=== PATIENT | male | born 1995 | race Caucasian/White ===

== ENCOUNTER 2016-07-26 11:29 | Emergency (ER) | payer BC ==
[2016-07-26] MEDS ORDERED: ONDANSETRON 4 MG TAB.RAPDIS PO ONE (11:42)
--- NOTE | 2016-07-26 11:44 | ER Document Report ---
ED Medical Screen (RME) - General Stated Complaint: FEVER Time seen by provider: 11:41 Mode of Arrival: Ambulatory Notes: Patient states sudden onset of high fever, nauseous, dizzy, and whole body pain which started last night. Patient states he has been vomiting, but does not know exactly how many times, denies diarrhea. Girlfriend with same symptoms. I have greeted and performed a rapid initial assessment of this patient. A comprehensive ED assessment and evaluation of the patient, analysis of test results and completion of the medical decision making process will be conducted by additional ED providers. TRAVEL OUTSIDE OF THE [place] IN LAST 30 DAYS: No - Related Data Allergies/Adverse Reactions: Sulfa (Sulfonamide Antibiotics) Allergy (Verified 07/26/16 11:41) Past Medical History Past Surgical History: Reports: Hx Oral Surgery, Hx Orthopedic Surgery - Immunizations Hx Diphtheria, Pertussis, Tetanus Vaccination: Yes Physical Exam - Respiratory Notes: Lungs clear to auscultation, no respiratory distress noted.
[2016-07-26 12:10] LABS: APPEARANCE,URINE CLEAR; BILIRUBIN,URINE NEGATIVE (NEGATIVE); GLUCOSE, URINE NEGATIVE (NEGATIVE); KETONES,URINE 20 mg/dL (NEGATIVE); LEUKOCYTE ESTERASE,URINE NEGATIVE (NEGATIVE); NITRITE,URINE NEGATIVE (NEGATIVE); PROTEIN,URINE 30 mg/dL (NEGATIVE); URINE SPECIFIC GRAVITY 1.023; UROBILINOGEN,URINE NEGATIVE mg/dL (<2.0)
[2016-07-26] MEDS ORDERED: ACETAMINOPHEN 325 MG TABLET PO ONE (12:19)
--- NOTE | 2016-07-26 12:24 | ER Document Report ---
ED Flu Like - General Chief Complaint: Flu Symptoms Stated Complaint: FEVER Mode of Arrival: Ambulatory Information source: Patient Notes: This is a 20-year-old previously healthy male who presents with flulike symptoms. He states that last night at about 9:00 PM he developed muscle aches , chills and sweats, fever. He has also had cough and congestion. He states that his cough is productive of green sputum. He has also had nausea and vomiting but no diarrhea. He is tolerating by mouth fluids for the past 3 hours. He did not get a flu shot this year. Of note his girlfriend is also here in the department with very similar symptoms. He states that his temperature at home last night was 104. He last took ibuprofen at 9:00 this morning. TRAVEL OUTSIDE OF THE [place] IN LAST 30 DAYS: No - Related Data Allergies/Adverse Reactions: Sulfa (Sulfonamide Antibiotics) Allergy (Verified 07/26/16 11:41) Past Medical History - General Information source: Patient - Social History Smoking Status: Current Every Day Smoker Chew tobacco use (# tins/day): No Frequency of alcohol use: Occasional Drug Abuse: None Family History: Reviewed & Not Pertinent Patient has suicidal ideation: No Patient has homicidal ideation: No - Medical History Medical History: Negative Renal/ Medical History: Denies: Hx Peritoneal Dialysis Past Surgical History: Reports: Hx Oral Surgery, Hx Orthopedic Surgery - Immunizations Hx Diphtheria, Pertussis, Tetanus Vaccination: Yes Review of Systems - Review of Systems Notes: REVIEW OF SYSTEMS: CONSTITUTIONAL : As per history of present illness EENT: Denies eye, ear, throat, or mouth pain or symptoms. Nasal congestion as per history of present illness CARDIOVASCULAR: Denies chest pain. RESPIRATORY: Denies shortness of breath, difficulty breathing, or wheezing. GASTROINTESTINAL: As per history of present illness GENITOURINARY: Denies difficulty urinating, painful urination, burning, frequency, or blood in urine. MUSCULOSKELETAL: Denies neck or back pain or joint pain or swelling. SKIN: Denies rash or skin lesions. HEMATOLOGIC : Denies easy bruising or bleeding. LYMPHATIC: Denies swollen, enlarged glands. NEUROLOGICAL: Denies altered mental status or loss of consciousness. Denies headache. PSYCHIATRIC: Denies anxiety or stress or depression. ALL OTHER SYSTEMS REVIEWED AND NEGATIVE. Physical Exam - Vital signs Vitals: Temp Pulse Resp BP Pulse Ox 100.8 F H 99 15 129/74 H 97 07/26/16 11:42 07/26/16 11:42 07/26/16 11:42 07/26/16 11:42 07/26/16 11:42 - Notes Notes: PHYSICAL EXAMINATION: GENERAL: Well-appearing, well-nourished and in no acute distress. Pleasant and conversant HEAD: Atraumatic, normocephalic. EYES: Pupils equal round and reactive to light, extraocular movements intact, sclera anicteric, conjunctiva are normal. ENT: nares patent, oropharynx clear without exudates. Moist mucous membranes. Slight pharyngeal erythema NECK: Normal range of motion, supple without lymphadenopathy LUNGS: Breath sounds clear to auscultation bilaterally and equal. No wheezes rales or rhonchi. HEART: Regular rate and rhythm without murmurs ABDOMEN: Soft, nontender, normoactive bowel sounds. No guarding, no rebound. No masses appreciated. EXTREMITIES: Normal range of motion, no pitting or edema. No cyanosis. NEUROLOGICAL: Cranial nerves grossly intact. Normal speech, normal gait. Normal sensory, motor, and reflex exams. PSYCH: Normal mood, normal affect. SKIN: Warm, Dry, normal turgor, no rashes or lesions noted. Course - Re-evaluation Re-evalutation: 07/26/16 13:01 Patient states this is negative however clinically his symptoms are very consistent with influenza. We discussed Tamiflu and he will be treated with Tamiflu as well as supportive care. He will follow up with his primary care physician. Strict return precautions are discussed. - Vital Signs Vital signs: Temp Pulse Resp BP Pulse Ox 100.8 F H 99 15 129/74 H 97 07/26/16 11:42 07/26/16 11:42 07/26/16 11:42 07/26/16 11:42 07/26/16 11:42 - Laboratory Laboratory results interpreted by me: 07/26/16 11:51 Urine Protein 30 H Urine Ketones 20 H Urine Blood SMALL H Discharge - Discharge Clinical Impression: Influenza-like syndrome Condition: Stable Disposition: HOME, SELF-CARE Additional Instructions: INFLUENZA: The physician feels that you have influenza -- the "flu". Influenza is an infection caused by a virus. Symptoms include generalized aching, fever, headache, dry cough, and fatigue. Some patients with the flu also have nausea, vomiting, and diarrhea. The fever and aches usually last two to four days, with the cough persisting another one to two weeks. Treatment of the flu, for the most part, is simply treatment of symptoms. Rest, drink plenty of fluids, and use acetaminophen for fever and aches. Do not take aspirin. There is an anti-viral medication, called Tamiflu, which may help in "type A" flu, but it's not helpful in every case of flu, and only works if started within the first 24 - 48 hours of the start of symptoms. The physician will determine whether this medication can help you. To prevent spread of the virus, use good handwashing. Shared toys should be cleaned with disinfectant. Clean the toilets, sinks, and counter surfaces in bathrooms. Launder clothing in hot water. What are conditions that should receive medical attention? The development of difficulty breathing. Lip color changes to blue or purple. Persistent vomiting and unable to keep liquids down with signs of dehydration such as: dizziness when standing, unable to urinate, or if child/ is crying no tears are noticed. Is less responsive than normal or becomes confused. How do I decrease the spread of flu in my home? Taking care of the sick patient at home: Keep the sick person in a room separate from the common areas of the house. Keep the "sickroom" door closed. If the person with the flu needs to leave the home, they should cover their nose/mouth when coughing or sneezing and wear a disposable (surgical) mask if available. These masks may be available at your local pharmacy, medical supply and hardware store. If the sick person is in common areas of the house, have them wear a surgical mask. If possible, have the sick person use a separate bathroom that should be cleaned daily with a household disinfectant. If you are the caregiver: Avoid being face to face with the sick adult person as much as possible. Try to stay at least 6 feet away and wear a disposable surgical mask when possible. When holding small children who are sick, place their chin on your shoulder so that they will not cough in your face. Wash your hands after you touch the sick person or handle their tissues and laundry. Wear a mask if you leave home, as you may be infected from taking care of someone and not know it yet. Watch yourself and others in the home for flu symptoms and contact your doctor if symptoms occur. NOTE: Antiviral medication used to reduce the symptoms of the flu works only if taken within 48 hours, and best within 24 hours of symptom onset. Household Cleaning, laundry and waste disposal: Tissues and other disposable items used by the sick person should be thrown away in the trash. Wash your hands after touching these used items. No special waste disposal is required. Keep surfaces (especially bedside tables, bathroom surfaces, and toys for children) clean by wiping them down with a safe household disinfectant according to the directions on the product label. Per Center for Disease Control advice, most people will not receive testing to confirm flu. Also based on the person's health history and onset of symptoms, not all patients will receive prescriptions for antiviral medications. If you have questions related to this, please ask your healthcare provider. For more information, you can call the Centers for Disease Control and Prevention ([facility]) Hotline at 5-741-MBCPlanStan This line is available in Lithuanian and Scottish, 24 hours a day, 7 days a week. Or www.[employer] or www.cdc.gov Flu-Like Illness Home Instructions: The influenza virus infection can cause a wide rage of symptoms, including: Fever, cough, sore throat, body aches, headaches, chills, fatigue, with some patients reporting diarrhea and vomiting Like seasonal influenza A, H1N1 ("swine flu")in humans can vary in severity from mild to severe Severe illness with pneumonia, respiratory failure and even is possible Certain groups might be more likely to develop a severe illness from H1N1 infection. Sometimes bacterial infections may occur at the same time as or after infection with influenza viruses and lead to pneumonias, ear infections, or sinus infections. How Flu Spreads The main way that influenza viruses spread is through respiratory droplets of coughs and sneezes. This can happen when someone with the infection coughs or sneezes and the particles fly through the air and land on other people and surfaces. If the person covers their mouth and nose with their hand but does not wash their hands immediately, then these germs are passed onto the next object that they touch. People with Influenza A or suspected H1N1 (swine flu) who are cared for at home should: Check with their doctor about any special care that they might need if they are or have a health condition such as diabetes, heart disease, asthma or emphysema. Also, limit caregiver to one (if possible). women or those with chronic health conditions should not take care of the flu patient unless necessary. Check with their doctor about whether or not medications are needed that may lessen the symptoms of the flu. Stay at home until 24 hours fever free without the use of fever reducing medication. Get plenty of rest and avoid other healthy people in your home. Drink plenty of clear liquids to keep from getting dehydrated. Take medications like Tylenol (Acetaminophen), Advil/Motrin/Nuprin ( Ibuprofen) or Aleve (Naproxen) for fevers and aches. All children under the age of 18 years of age should not take aspirin or products containing aspirin (e.g. Pepto Bismol), as this can cause a rare serious illness called Isaac Syndrome. Over the counter medications for flu and colds may help, but it is very important to follow the package directions. Remember that the medicine may help the symptoms, but it will not help prevent others from getting sick if they are around you. Cover coughs and sneezes using your bent arm. Clean hands with soap and water or an alcohol-based hand rub often, especially after using tissues to cough or sneeze. Encourage hand washing frequently for all people living in the home! The sick person should not have visitors other than caregivers. Encourage concerned loved ones to call instead of visit. Avoid close contact with others-do not go to work or school while sick. USE OF ACETAMINOPHEN (Tylenol): Acetaminophen may be taken for pain relief or fever control. It's much safer than aspirin, offering a wider range of "safe" dosages. It is safe during . Some brand names are Tylenol, Panadol, Datril, Anacin 3, Tempra, and Liquiprin. Acetaminophen can be repeated every four hours. The following are maximum recommended dosages: WEIGHT Dose Drops Elixir Chewable( 80mg) (LBS.) drprs=droppers tsp=teaspoon 6 40 mg 0.4 ml (1/2) 6-11 80 mg 0.8 ml (full) tsp 1 tab 12-16 120 mg 1 1/2 drprs 3/4 tsp 1 1/2 tabs 17-23 160 mg 2 drprs 1 tsp 2 tabs 24-30 240 mg 3 drprs 1 1/2 tsp 3 tabs 30-35 320 mg 2 tsp 4 tabs 36-41 360 mg 2 1/4 tsp 4 1/2 tabs 42-47 400 mg 2 1/2 tsp 5 tabs 48-53 480 mg 3 tsp 6 tabs 54-59 520 mg 3 1/4 tsp 6 1/2 tabs 60-64 560 mg 3 1/2 tsp 7 tabs 65-70 600 mg 3 3/4 tsp 7 1/2 tabs 71-76 640 mg 4 tsp 8 tabs 77-82 720 mg 4 1/2 tsp 9 tabs 83-88 800 mg 5 tsp 10 tabs >89 pounds or adults 650 mg to 900 mg Acetaminophen can be repeated every four hours. Maximum dose not to exceed 4000 mg a day. These maximum recommended dosages are slightly higher than the dosages written on the product container, but these dosages are very safe and below the toxic dosage for acetaminophen. ORAL NARCOTIC MEDICATION: You have been given a prescription for pain control. This medication is a narcotic. It's best taken with food, as nausea can result if taken on an empty stomach. Don't operate machinery or drive within six hours of taking this medication. Do not combine this medicine with alcohol, or with any medication which can cause sedation (such as cold tablets or sleeping pills) unless you get permission from the physician. Narcotics tend to cause constipation. If possible, drink plenty of fluids and eat a diet high in fiber and fruits. Please be aware that prescription narcotics also have the potential for abuse. People become addicted to these medications because of the general sense of wellbeing that they induce. This feeling along with a significant reduction in tension, anxiety, and aggression provides a stimulating seductive quality to these drugs. Once your pain is under control, we encourage you to discard your unused narcotics. FOLLOW-UP CARE: If you have been referred to a physician for follow-up care, call the physician s office for an appointment as you were instructed or within the next two days. If you experience worsening or a significant change in your symptoms, notify the physician immediately or return to the Emergency Department at any time for re-evaluation. Prescriptions: Oseltamivir Phosphate [Tamiflu 75 mg Capsule] 75 mg PO BID #10 capsule Promethazine HCl [Phenergan 25 mg Tablet] 1 tab PO Q6H PRN #15 tablet PRN Reason: Forms: Return to Work
[2016-07-26 13:16] VITALS: BP 123/74
== END 2016-07-26 13:14 | disposition home or self-care (01) ==
LOC: ER 11:29
DX: J11.1 Influenza due to unidentified influenza virus with other respiratory manifestations (principal); R50.9 Fever, unspecified; R61 Generalized hyperhidrosis; M79.1 Myalgia; R05 Cough; R11.2 Nausea with vomiting, unspecified; F17.200 Nicotine dependence, unspecified, uncomplicated; Z88.2 Allergy status to sulfonamides
CPT/HCPCS: 99283; 87070; 87880; 81001; 87804; S0119

== ENCOUNTER 2016-11-07 13:15 | Emergency (ER) | payer SELFPAY ==
[2016-11-07] MEDS ORDERED: OXYCODONE-ACETAMINOPHEN 5-325 MG TABLET PO ONE (13:26)
[2016-11-07] MEDS ORDERED: DIPH/PERTUSS(ACELL)/TETANUS VAC/PF 0.5 ML SYR (>=10YO) IM ONE (13:26)
--- NOTE | 2016-11-07 13:48 | ER Document Report ---
ED Hand/Wrist Injury - General Chief Complaint: Hand Pain Stated Complaint: RIGHT HAND INJURY Time Seen by Provider: 11/07/16 13:25 Mode of Arrival: Ambulatory Information source: Patient TRAVEL OUTSIDE OF THE [place] IN LAST 30 DAYS: No - HPI Patient complains to provider of: right hand injury Injury to: Hand Onset: Yesterday Timing: Constant Quality of pain: Achy, Fullness, Pressure Severity: Moderate Pain Level: 4 Context: Blow Notes: Patient is a 21-year-old male who presents to the emergency room complaining of right hand pain, states yesterday evening he punched a brick wall causing injury to his right hand, he has several abrasions over the MCP joint with significant swelling, reports a tingling sensation in his third through fifth digits as well, denies injury or pain elsewhere, last tetanus shot is unknown - Related Data Allergies/Adverse Reactions: Sulfa (Sulfonamide Antibiotics) Allergy (Verified 11/07/16 13:24) Past Medical History - General Information source: Patient - Social History Smoking Status: Unknown if Ever Smoked Family History: Reviewed & Not Pertinent Patient has suicidal ideation: No Patient has homicidal ideation: No Renal/ Medical History: Denies: Hx Peritoneal Dialysis Past Surgical History: Reports: Hx Oral Surgery, Hx Orthopedic Surgery - Immunizations Hx Diphtheria, Pertussis, Tetanus Vaccination: Yes Review of Systems - Review of Systems Constitutional: No symptoms reported EENT: No symptoms reported Cardiovascular: No symptoms reported Respiratory: No symptoms reported Gastrointestinal: No symptoms reported Genitourinary: No symptoms reported Male Genitourinary: No symptoms reported Musculoskeletal: See HPI Skin: See HPI Hematologic/Lymphatic: No symptoms reported Neurological/Psychological: No symptoms reported -: Yes All other systems reviewed and negative Physical Exam - Vital signs Vitals: Temp Pulse Resp BP Pulse Ox 98.5 F 101 H 20 151/76 H 97 11/07/16 13:24 11/07/16 13:24 11/07/16 13:24 11/07/16 13:24 11/07/16 13:24 - Notes Notes: - General General appearance: Appears well, Alert In distress: None - HEENT Head: Normocephalic, Atraumatic Eyes: Normal Conjunctiva: Normal Extraocular movements intact: Yes Eyelashes: Normal Pupils: PERRL - Respiratory Respiratory status: No respiratory distress - Cardiovascular Rhythm: Regular - Abdominal Inspection: Normal - Back Back: Normal - Extremities General upper extremity: right hand with several abrasions over the third through fifth MCP joints, significant swelling to the hand, with tenderness to palpate over the fourth and fifth metacarpals with slight deformity distal sensation is intact with brisk capillary refill and 2+ radial pulses General lower extremity: Normal inspection - Neurological Neuro grossly intact: Yes Orientation: AAOx4 [place] Coma Scale Eye Opening: Spontaneous [place] Coma Scale Verbal: Oriented [place] Coma Scale Motor: Obeys Commands [place] Coma Scale Total: 15 - Psychological Associated symptoms: Normal affect, Normal mood - Skin Skin Temperature: Warm Skin Moisture: Dry Skin Color: Normal Course - Re-evaluation Re-evalutation: 11/07/16 14:28 Findings discussed with patient at bedside, and ulnar gutter splint was, he was provided with pain medication as well as prophylactic antibiotics and information for follow-up with orthopedics, he was advised to leave splint in place until follow-up, ice and elevate, given return precautions for signs and symptoms of compartment syndrome, patient acknowledges understanding and agreement with this plan - Vital Signs Vital signs: Temp Pulse Resp BP Pulse Ox 98.5 F 89 20 136/74 H 97 11/07/16 13:24 11/07/16 14:23 11/07/16 13:24 11/07/16 14:23 11/07/16 14:23 - Diagnostic Test Radiology reviewed: Image reviewed, Reports reviewed Procedures - Immobilization Right Hand Time completed: 14:29 Pre-Proc Neuro Vasc Exam: Normal Immobilizer type: Ulnar Performed by: Other - [employer] OFFICER Post-Proc Neuro Vasc Exam: Normal Alignment checked and good: Yes Discharge - Discharge Clinical Impression: Fracture of fifth metacarpal bone of right hand Qualifiers: Encounter type: initial encounter Fracture type: closed Metacarpal location: base Fracture alignment: nondisplaced Qualified Code(s): S62.346A - Nondisplaced fracture of base of fifth metacarpal bone, right hand, initial encounter for closed fracture Fracture of fourth metacarpal bone Qualifiers: Encounter type: initial encounter Fracture type: closed Metacarpal location: shaft Fracture alignment: displaced Laterality: right Qualified Code(s): S62.324A - Displaced fracture of shaft of fourth metacarpal bone, right hand, initial encounter for closed fracture Condition: Stable Disposition: HOME, SELF-CARE Instructions: Fractured Fifth Metacarpal ([facility]), Fractured Metacarpal ([facility]), Temporary Splint ([facility]), Splint Pending Casting ([facility]), Tetanus Immunization Given ([facility]), Oral Narcotic Medication ([facility]), Ice & Elevation ([facility]) Additional Instructions: Follow up with your primary care provider and an orthopedic surgeon in one to 2 days. Return to the emergency room immediately if symptoms worsen or any additional concerns. Ice and elevate the affected extremity. Prescriptions: Cephalexin Monohydrate [Keflex 500 mg Capsule] 500 mg PO BID #20 capsule Oxycodone HCl/Acetaminophen [Percocet 5-325 mg Tablet] 1 - 2 tab PO ASDIR PRN # 15 tablet PRN Reason: Referrals: SHANNA OCONNOR MD [ACTIVE STAFF] - Follow up as needed
[2016-11-07 14:26] VITALS: BP 136/74
--- NOTE | 2016-11-07 14:29 | RADIOLOGY REPORT (SQ) ---
EXAM DESCRIPTION: HAND RIGHT 3 VIEWS COMPLETED DATE/TIME: 11/07/2016 1:53 pm REASON FOR STUDY: injury COMPARISON: None. EXAM PARAMETERS: NUMBER OF VIEWS: Three views. TECHNIQUE: AP, lateral and oblique radiographic images acquired of the right hand. LIMITATIONS: None. FINDINGS: MINERALIZATION: Normal. BONES: Acute spiral fracture mid shaft right 4th metacarpal. No definite extension into the carpomet acarpal joint. Comminuted fracture proximal base right 5th metacarpal, extending into the 5th carpometacarpal joint. Slight ulnar subluxation of the metacarpal fracture fragments with respect to the carpal bones. JOINTS: No effusions. SOFT TISSUES: Diffuse dorsal right hand soft tissue swelling OTHER: No other significant finding. IMPRESSION: Fractures of the 4th and 5th metacarpals. TECHNICAL DOCUMENTATION: JOB ID: [id number] [employer]- All Rights Reserved
== END 2016-11-07 14:30 | disposition home or self-care (01) ==
LOC: ER 13:15
PROC: 2W3EX1Z Immobilization of Right Hand using Splint (ICD-10-PCS; principal; 2016-11-07)
DX: S62.324A Displaced fracture of shaft of fourth metacarpal bone, right hand, initial encounter for closed fracture (principal); S62.346A Nondisplaced fracture of base of fifth metacarpal bone, right hand, initial encounter for closed fracture; M79.641 Pain in right hand; W22.8XXA Striking against or struck by other objects, initial encounter
CPT/HCPCS: 90471; 90715; 99283

== ENCOUNTER 2016-12-09 18:59 | Emergency (ER) | payer SELFPAY ==
[2016-12-09 19:05] VITALS: BP 134/82
--- NOTE | 2016-12-09 19:43 | ER Document Report ---
ED GI Bleed / Rectal Pain - General Chief Complaint: Rectal Bleeding Stated Complaint: RECTAL PROBLEM Time Seen by Provider: 12/09/16 19:37 Notes: Patient states that he has rectal pain. He states it is been for 2 days. He states he has also had bleeding. Patient states he has had problems with hemorrhoids since his allan year in high school. This started with weight lifting. He states bowel movements are extremely painful and he is having a hard time sitting down. The pain is worse with movement and better with rest. The pain is sharp. The pain does not radiate. He denies any abdominal pain. No fevers or vomiting. The pain is constant. TRAVEL OUTSIDE OF THE [place] IN LAST 30 DAYS: No - Related Data Allergies/Adverse Reactions: Sulfa (Sulfonamide Antibiotics) Allergy (Verified 12/09/16 19:01) Past Medical History - General Information source: Patient - Social History Smoking Status: Current Every Day Smoker Frequency of alcohol use: Occasional Drug Abuse: None Family History: Reviewed & Not Pertinent Patient has suicidal ideation: No Patient has homicidal ideation: No Renal/ Medical History: Denies: Hx Peritoneal Dialysis Past Surgical History: Reports: Hx Oral Surgery, Hx Orthopedic Surgery - Immunizations Hx Diphtheria, Pertussis, Tetanus Vaccination: Yes Review of Systems - Review of Systems Respiratory: denies: Cough, Short of breath Gastrointestinal: denies: Diarrhea, Vomiting Genitourinary: denies: Flank pain, Hematuria Physical Exam - Vital signs Vitals: Temp Pulse Resp BP Pulse Ox 98.4 F 61 14 134/82 H 100 12/09/16 19:02 12/09/16 19:02 12/09/16 19:02 12/09/16 19:02 12/09/16 19:02 - General General appearance: Appears well, Alert - Respiratory Respiratory status: No respiratory distress Chest status: Nontender Breath sounds: Normal Chest palpation: Normal - Cardiovascular Rhythm: Regular Heart sounds: Normal auscultation Murmur: No - Abdominal Inspection: Normal Distension: No distension Bowel sounds: Normal Tenderness: Nontender Organomegaly: No organomegaly - Rectal Tenderness: Yes Hemorrhoids: External - Back Back: Normal, Nontender - Extremities General upper extremity: Normal inspection, Nontender, Normal color, Normal ROM , Normal temperature General lower extremity: Normal inspection, Nontender, Normal color, Normal ROM , Normal temperature, Normal weight bearing. No: Augie's sign - Skin Skin Temperature: Warm Skin Moisture: Dry Skin Color: Normal Course - Vital Signs Vital signs: Temp Pulse Resp BP Pulse Ox 98.4 F 61 14 134/82 H 100 12/09/16 19:02 12/09/16 19:02 12/09/16 19:02 12/09/16 19:02 12/09/16 19:02 Discharge - Discharge Clinical Impression: Hemorrhoids, external Condition: Good Disposition: HOME, SELF-CARE Instructions: Hemorrhoids ([facility]) Prescriptions: Docusate Sodium [Colace 100 mg Capsule] 100 mg PO BID #60 capsule Oxycodone HCl/Acetaminophen [Percocet 5-325 mg Tablet] 1 - 2 tab PO ASDIR PRN # 15 tablet PRN Reason: Pramoxine HCl/Mineral Oil/Znox [Anusol Ointment] 24 gm RC BID #7 oint..gm. Referrals: THALIA MARTÍNEZ MD [LYSSA TEMPLE] - Follow up in 1 week
== END 2016-12-09 19:50 | disposition home or self-care (01) ==
LOC: ER 18:59
DX: K64.4 Residual hemorrhoidal skin tags (principal); K62.5 Hemorrhage of anus and rectum; F17.200 Nicotine dependence, unspecified, uncomplicated
CPT/HCPCS: 99283

== ENCOUNTER 2017-02-26 18:28 | Emergency (ER) | payer SELFPAY ==
[2017-02-26] MEDS ORDERED: NICOTINE 21 MG/24 HR PATCH.TD24 TD ONE (19:41)
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
[2017-02-26 21:03] VITALS: BP 122/78
== END 2017-02-26 21:07 | disposition home or self-care (01) ==
LOC: ER 18:28
DX: R45.1 Restlessness and agitation (principal); F17.200 Nicotine dependence, unspecified, uncomplicated; X83.8XXA Intentional self-harm by other specified means, initial encounter
CPT/HCPCS: 99284

== ENCOUNTER 2017-04-05 15:45 | Inpatient (IN) | payer SELFPAY ==
[2017-04-05] MEDS ORDERED: NORMAL SALINE 1000 ML 2,500 ML IV ONE (16:14)
[2017-04-05] MEDS ORDERED: ACETAMINOPHEN 325 MG TABLET PO ONE (16:14)
[2017-04-05] MEDS ORDERED: PIPERACILLIN/TAZOBACTAM 4.5 GM VIAL IV ONE (16:14)
[2017-04-05] MEDS ORDERED: ALBUTEROL SULFATE 0.083% NEB 2.5 MG/3 ML AMPUL NEB ONE (16:16)
--- NOTE | 2017-04-05 16:16 | ER Document Report ---
ED Medical Screen (RME) - General Chief Complaint: Cold Symptoms Stated Complaint: COLD SYMPTOMS Time Seen by Provider: 04/05/17 16:13 Notes: Patient reports fever cough and congestion for 1 week which is much worse of the last 3 days. He states he has been unable to eat. He states he feels very short of breath. He states he is coughing up green sputum. He states his father recently was diagnosed with the flu. TRAVEL OUTSIDE OF THE [place] IN LAST 30 DAYS: No - Related Data Allergies/Adverse Reactions: Sulfa (Sulfonamide Antibiotics) Allergy (Verified 04/05/17 15:48) Home Medications: Current Home Medications No Home Medications 04/05/17 [History] Past Medical History Renal/ Medical History: Denies: Hx Peritoneal Dialysis Past Surgical History: Reports: Hx Oral Surgery, Hx Orthopedic Surgery - Immunizations Hx Diphtheria, Pertussis, Tetanus Vaccination: Yes Physical Exam - Vital signs Vitals: Temp Pulse Resp BP Pulse Ox 100.7 F H 110 H 20 135/72 H 91 L 04/05/17 15:49 04/05/17 15:49 04/05/17 15:49 04/05/17 15:49 04/05/17 15:49 Course - Vital Signs Vital signs: Temp Pulse Resp BP Pulse Ox 100.7 F H 110 H 20 135/72 H 91 L 04/05/17 15:49 04/05/17 15:49 04/05/17 15:49 04/05/17 15:49 04/05/17 15:49
--- NOTE | 2017-04-05 17:07 | RADIOLOGY REPORT (SQ) ---
EXAM DESCRIPTION: CHEST PA/LAT COMPLETED DATE/TIME: 04/05/2017 4:58 pm REASON FOR STUDY: fever, cough COMPARISON: None. EXAM PARAMETERS: NUMBER OF VIEWS: two views TECHNIQUE: Digital Frontal and Lateral radiographic views of the chest acquired. RADIATION DOSE: NA LIMITATIONS: none FINDINGS: LUNGS AND PLEURA: No opacities, masses or pneumothorax. No pleural effusion. MEDIASTINUM AND HILAR STRUCTURES: No masses or contour abnormalities. HEART AND VASCULAR STRUCTURES: Heart normal size. No evidence for failure. BONES: No acute findings. HARDWARE: None in the chest. OTHER: No other significant finding. IMPRESSION: NO SIGNIFICANT RADIOGRAPHIC FINDING IN THE CHEST. TECHNICAL DOCUMENTATION: JOB ID: [id number] [employer]- All Rights Reserved
[2017-04-05 17:19] LABS: ABSOLUTE LYMPHOCYTES (AUTO) 1.6 10^3/uL (0.5-4.7); ABSOLUTE MONOCYTES (AUTO) 1.2 10^3/uL (0.1-1.4); ABSOLUTE NEUT (AUTO) 12.9 10^3/uL (1.7-8.2); BASOPHILS % (AUTO) 0.1 % (0-2); EOSINOPHILS % (AUTO) 0.3 % (0-6); HEMOGLOBIN 16.6 g/dL (13.5-17.0); HGB HCT DIFFERENCE 2.8; LYMPHOCYTES % (AUTO) 10.4 % (13-45); MEAN CORPUSCULAR HEMOGLOBIN 31.8 pg (27.0-33.4); MEAN CORPUSCULAR HGB CONC 35.3 g/dL (32.0-36.0); MEAN CORPUSCULAR VOLUME 90 fl (80-97); MONOCYTES % (AUTO) 7.6 % (3-13); RED BLOOD COUNT 5.21 10^6/uL (4.35-5.55); SEGMENTED NEUTROPHILS % (AUTO) 81.6 % (42-78); WHITE BLOOD COUNT 15.8 10^3/uL (4.0-10.5)
[2017-04-05 17:23] LABS: VENOUS BLOOD HCO3 28.8 mmol/L (20-32); VENOUS BLOOD PCO2 47.4 mmHg (35-63); VENOUS BLOOD PH 7.4 (7.30-7.42)
[2017-04-05 17:44] LABS: ALANINE AMINOTRANSFERASE 28 U/L (21-72); ALBUMIN 4.8 g/dL (3.5-5.0); ALKALINE PHOSPHATASE 86 U/L (38-126); ANION GAP 16 (5-19); ASPARTATE AMINO TRANSFERASE 24 U/L (17-59); BILIRUBIN,DIRECT 0.4 mg/dL (0.0-0.4); BILIRUBIN,TOTAL 1.2 mg/dL (0.2-1.3); BLOOD UREA NITROGEN 8 mg/dL (7-20); CALCIUM 9.7 mg/dL (8.4-10.2); CARBON DIOXIDE 27 mmol/L (22-30); CHLORIDE 100 mmol/L (98-107); GLUCOSE 100 mg/dL (75-110); POTASSIUM 4.2 mmol/L (3.6-5.0); SODIUM 143.1 mmol/L (137-145); TOTAL PROTEIN 7.8 g/dL (6.3-8.2)
[2017-04-05 18:25] LABS: APPEARANCE,URINE CLEAR; BILIRUBIN,URINE NEGATIVE (NEGATIVE); GLUCOSE, URINE NEGATIVE (NEGATIVE); KETONES,URINE NEGATIVE (NEGATIVE); LEUKOCYTE ESTERASE,URINE TRACE (NEGATIVE); NITRITE,URINE NEGATIVE (NEGATIVE); PROTEIN,URINE NEGATIVE (NEGATIVE); URINE SPECIFIC GRAVITY 1.019
[2017-04-05] MEDS ORDERED: LEVOFLOXACIN 750 MG/D5W RTU 750 MG/150 ML RTUPB IV ONE (18:43)
[2017-04-05] MEDS ORDERED: NORMAL SALINE 1000 ML 1,000 ML IV ONE (18:44)
--- NOTE | 2017-04-05 18:44 | ER Document Report ---
ED General - General Chief Complaint: Cold Symptoms Stated Complaint: COLD SYMPTOMS Time Seen by Provider: 04/05/17 16:13 Notes: Patient is a 21-year-old male current every day tobacco user, no other medical problems who presents with 1 week of progressively worsening cough, fever, chills, and progressively worsening shortness of breath. Patient states that he was at work today, and increasingly Gan could not breathe. This prompted him to come to the emergency department. He denies any history of similar symptoms in the past. Nothing seems to improve or worsen his symptoms. No known sick contacts. He has not seen a primary doctor regarding today's concerns. He has had persistent vomiting for the past 4 days but denies any diarrhea. He has no history of DVT or pulmonary embolus. He denies any pleuritic chest pain. TRAVEL OUTSIDE OF THE [place] IN LAST 30 DAYS: No - Related Data Allergies/Adverse Reactions: Sulfa (Sulfonamide Antibiotics) Allergy (Verified 04/05/17 15:48) Home Medications: Current Home Medications No Home Medications 04/05/17 [History] Past Medical History - General Information source: Patient - Social History Smoking Status: Current Every Day Smoker Chew tobacco use (# tins/day): No Frequency of alcohol use: Occasional Drug Abuse: None Lives with: Family Family History: Reviewed & Not Pertinent Patient has suicidal ideation: No Patient has homicidal ideation: No Renal/ Medical History: Denies: Hx Peritoneal Dialysis Past Surgical History: Reports: Hx Oral Surgery, Hx Orthopedic Surgery - Immunizations Hx Diphtheria, Pertussis, Tetanus Vaccination: Yes Review of Systems - Review of Systems Notes: Constitutional: Positive for fever. HENT: Negative for sore throat. Eyes: Negative for visual changes. Cardiovascular: Negative for chest pain. Respiratory: Positive for shortness of breath. Gastrointestinal: Negative for abdominal pain, positive for vomiting Genitourinary: Negative for dysuria. Musculoskeletal: Negative for back pain. Skin: Negative for rash. Neurological: Negative for headaches, weakness or numbness. 10 point ROS negative except as marked above and in HPI. Physical Exam - Vital signs Vitals: Temp Pulse Resp BP Pulse Ox 100.7 F H 110 H 20 135/72 H 91 L 04/05/17 15:49 04/05/17 15:49 04/05/17 15:49 04/05/17 15:49 04/05/17 15:49 Interpretation: Tachycardic, Hypoxic, Tachypneic, Febrile Notes: PHYSICAL EXAMINATION: GENERAL: Appears somewhat uncomfortable but in no acute distress HEAD: Atraumatic, normocephalic. EYES: Pupils equal round and reactive to light, extraocular movements intact, sclera anicteric, conjunctiva are normal. ENT: nares patent, oropharynx clear without exudates. Dry mucous membranes. NECK: Normal range of motion, supple without lymphadenopathy LUNGS: Moderate tachypnea respiratory rate 28-30 at time of my assessment. No retractions. Diminished breath sounds at the bases bilaterally. Expiratory wheezing in all lung christiansen. HEART: Regular tachycardia without murmurs ABDOMEN: Soft, nontender, normoactive bowel sounds. No guarding, no rebound. No masses appreciated. EXTREMITIES: Normal range of motion, no pitting or edema. No cyanosis. NEUROLOGICAL: No focal neurological deficits. Moves all extremities spontaneously and on command. PSYCH: Normal mood, normal affect. SKIN: Warm, Dry, normal turgor, no rashes or lesions noted. Course - Re-evaluation Re-evalutation: 04/05/17 18:41 Patient presents tachypneic, hypoxic, tachycardic and febrile and meet sepsis criteria with a likely bacterial pneumonia as a source of his infection. At time of my assessment, patient continues to be tachypneic with respiratory rate ranging between 25 and 32 at the time of my assessment just lying in the bed. He is saturating 93-94% on 2 L by nasal cannula and does not have a baseline oxygen dependency. Although his chest x-ray is clear without any evidence of an acute pneumonia, he is diminished at the bases bilaterally on exam with the left being more prominent than the right. Chest x-rays do missed 30% of pneumonias on presentation and his clinical history and vitals are strongly suggestive of this diagnosis. Patient denies symptoms to suggest a pulmonary embolus as an alternative source and has multiple constitutional symptoms including vomiting, generalized body aches, fatigue and diarrhea that would go against this diagnosis. I do not suspect an acute myocarditis as patient has no evidence of peripheral edema or pulmonary edema on his chest x-ray. Patient does not have an elevated lactate and his pH is normal. However, given his oxygen dependency I do not believe he is appropriate for discharge home. He was given a dose of Zosyn by the triage physician which is overly broad coverage. I will transition to levofloxacin which is more appropriate coverage for this patient and will also cover atypicals. Flu is negative. Will discuss with Dr. Hanna for admission - Vital Signs Vital signs: Temp Pulse Resp BP Pulse Ox 100.7 F H 110 H 25 H 129/77 H 100 04/05/17 15:49 04/05/17 15:49 04/05/17 20:30 04/05/17 20:00 04/05/17 20:30 - Laboratory Result Diagrams: 04/05/17 16:49 04/05/17 16:49 Laboratory results interpreted by me: 04/05/17 04/05/17 16:18 16:49 WBC 15.8 H Seg Neutrophils % 81.6 H Lymphocytes % 10.4 L Absolute Neutrophils 12.9 H Urine Urobilinogen 2.0 H Ur Leukocyte Esterase TRACE H - Diagnostic Test Radiology reviewed: Image reviewed, Reports reviewed Radiology results interpreted by me: 04/05/17 18:41 Chest x-ray: No acute infiltrate Discharge - Discharge Clinical Impression: Hypoxemia Sepsis Qualifiers: Sepsis type: sepsis due to unspecified organism Qualified Code(s): A41.9 - Sepsis, unspecified organism Bilateral pneumonia Qualifiers: Pneumonia type: due to unspecified organism Lung location: unspecified part of lung Qualified Code(s): J18.9 - Pneumonia, unspecified organism Condition: Fair Disposition: ADMITTED INPATIENT Admitting Provider: Jeff Hanna Unit Admitted: Telemetry
[2017-04-05] MEDS ORDERED: BENZONATATE 100 MG CAPSULE PO ONE (19:17)
[2017-04-05] MEDS ORDERED: IPRATROPIUM/ALBUTEROL 0.5-2.5 MG/3 ML AMPUL NEB PRN (19:53)
[2017-04-05] MEDS ORDERED: ACETAMINOPHEN 325 MG TABLET PO PRN (19:53)
[2017-04-05] MEDS ORDERED: NORMAL SALINE 1000 ML 1,000 ML IV SCH (20:00)
[2017-04-05] MEDS: IPRATROPIUM/ALBUTEROL 0.5-2.5 MG/3 ML AMPUL NEB SCH (20:23)
[2017-04-05] MEDS ORDERED: CHLORPHENIRAMINE MALEATE 4 MG TABLET PO ONE (20:30)
[2017-04-05] MEDS: GUAIFENESIN 600 MG TABLET.SA PO SCH (21:52)
[2017-04-05] MEDS: HEPARIN SOD (PORCINE) 5,000 UNIT/ML 1 ML SYRINGE SUBCUT SCH (21:52)
[2017-04-05] MEDS ORDERED: FLUTICASONE NASAL SPRAY 50 MCG/SPRY 120 SPRAY/16 GM ONE (23:15)
[2017-04-05] MEDS: FLUTICASONE NASAL SPRAY 50 MCG/SPRY 120 SPRAY/16 GM NASL SCH (23:19)
[2017-04-06] MEDS: IPRATROPIUM/ALBUTEROL 0.5-2.5 MG/3 ML AMPUL NEB SCH ×4 (02:20→19:41)
[2017-04-06 05:37] LABS: ABSOLUTE LYMPHOCYTES (AUTO) 1.9 10^3/uL (0.5-4.7); ABSOLUTE MONOCYTES (AUTO) 1.3 10^3/uL (0.1-1.4); ABSOLUTE NEUT (AUTO) 10.8 10^3/uL (1.7-8.2); BASOPHILS % (AUTO) 0.2 % (0-2); EOSINOPHILS % (AUTO) 0.3 % (0-6); HEMATOCRIT 38.5 % (37.9-51.0); HGB HCT DIFFERENCE 1.4; LYMPHOCYTES % (AUTO) 13.7 % (13-45); MEAN CORPUSCULAR HEMOGLOBIN 31.2 pg (27.0-33.4); MEAN CORPUSCULAR HGB CONC 34.5 g/dL (32.0-36.0); MEAN CORPUSCULAR VOLUME 90 fl (80-97); MONOCYTES % (AUTO) 9.5 % (3-13); RED BLOOD COUNT 4.27 10^6/uL (4.35-5.55); RED CELL DISTRIBUTION WIDTH 13.1 % (11.5-14.0); SEGMENTED NEUTROPHILS % (AUTO) 76.3 % (42-78); WHITE BLOOD COUNT 14.2 10^3/uL (4.0-10.5)
[2017-04-06 05:38] LABS: HEMOGLOBIN 13.3 g/dL (13.5-17.0)
[2017-04-06] MEDS: HEPARIN SOD (PORCINE) 5,000 UNIT/ML 1 ML SYRINGE SUBCUT SCH ×3 (05:47→22:09)
[2017-04-06 05:56] LABS: ANION GAP 10 (5-19); BLOOD UREA NITROGEN 7 mg/dL (7-20); CALCIUM 8.1 mg/dL (8.4-10.2); CARBON DIOXIDE 26 mmol/L (22-30); CHLORIDE 109 mmol/L (98-107); CREATININE RESULT 0.95 mg/dL (0.52-1.25); GLUCOSE 98 mg/dL (75-110); POTASSIUM 3.6 mmol/L (3.6-5.0); SODIUM 145.4 mmol/L (137-145)
--- NOTE | 2017-04-06 05:59 | PDOC H&P ---
History of Present Illness Admission Date/PCP: 04/05/17 19:53 Patient complains of: Shortness of breath History of Present Illness: MARLO ZAYAS is a 21 year old male with past medical history of tobacco dependence who presents with 1 week of progressive nonproductive cough, fever and shortness of breath. He admits some rhinorrhea, denies ill contacts, sore throat, chest pain, myalgia or fever. In the emergency room he has severe respiratory distress requiring supplemental oxygen and unremarkable chest x-ray and a CBC with leukocytosis. He is diagnosed with pneumonia, started on empiric antibiotics and referred to the hospitalist for admission. His mother was diagnosed with lung cancer in her 30s. Past Medical History Medical History: None Psychiatric Medical History: Reports: Tobacco Dependency Past Surgical History Past Surgical History: Reports: Orthopedic Surgery Social History Information Source: Patient Lives with: Family Smoking Status: Current Every Day Smoker Cigarettes Packs Per Day: 1 Frequency of Alcohol Use: Social Hx Recreational Drug Use: No Hx Prescription Drug Abuse: Yes - Advance Directive Resuscitation Status: Full Code Family History Family History: Malignancy - Mother with lung cancer in 30s Parental Family History Reviewed: Yes Children Family History Reviewed: Yes Sibling(s) Family History Reviewed.: Yes Medication/Allergy Home Medications: No Home Medications 04/05/17 Allergies/Adverse Reactions: Sulfa (Sulfonamide Antibiotics) Allergy (Verified 04/05/17 15:48) Review of Systems Constitutional: ABSENT: chills, fever(s), headache(s), weight gain, weight loss Eyes: ABSENT: visual disturbances Ears: ABSENT: hearing changes Cardiovascular: ABSENT: chest pain, dyspnea on exertion, edema, orthropnea, palpitations Respiratory: ABSENT: cough, hemoptysis Gastrointestinal: ABSENT: abdominal pain, constipation, diarrhea, hematemesis, hematochezia, nausea, vomiting Genitourinary: ABSENT: dysuria, hematuria Musculoskeletal: ABSENT: joint swelling Integumentary: ABSENT: rash, wounds Neurological: ABSENT: abnormal gait, abnormal speech, confusion, dizziness, focal weakness, syncope Psychiatric: ABSENT: anxiety, depression, homidical ideation, suicidal ideation Endocrine: ABSENT: cold intolerance, heat intolerance, polydipsia, polyuria Hematologic/Lymphatic: ABSENT: easy bleeding, easy bruising Physical Exam Vital Signs: Temp Pulse Resp BP Pulse Ox 100.7 F H 83 18 131/66 H 96 04/05/17 22:11 04/06/17 02:21 04/06/17 02:21 04/05/17 22:11 04/06/17 02:21 Intake & Output 04/04/17 04/05/17 04/06/17 11:59 11:59 11:59 Intake Total 900 Balance 900 Weight 80.7 kg General appearance: PRESENT: cooperative, severe distress, well-developed, well- nourished Head exam: PRESENT: atraumatic, normocephalic Eye exam: PRESENT: conjunctiva pink, EOMI, PERRLA. ABSENT: scleral icterus Ear exam: PRESENT: normal external ear exam Mouth exam: PRESENT: moist, tongue midline Neck exam: ABSENT: carotid bruit, JVD, lymphadenopathy, thyromegaly Respiratory exam: PRESENT: accessory muscle use, crackles, retraction, rhonchi, symmetrical, tachypnea. ABSENT: chest wall tenderness, clear to auscultation rkis Cardiovascular exam: PRESENT: RRR. ABSENT: diastolic murmur, rubs, systolic murmur Pulses: PRESENT: normal dorsalis pedis pul Vascular exam: PRESENT: normal capillary refill GI/Abdominal exam: PRESENT: normal bowel sounds, soft. ABSENT: distended, guarding, mass, organolmegaly, rebound, tenderness Rectal exam: PRESENT: deferred Extremities exam: PRESENT: full ROM. ABSENT: calf tenderness, clubbing, pedal edema Neurological exam: PRESENT: alert, awake, oriented to person, oriented to place , oriented to time, oriented to situation, CN II-XII grossly intact. ABSENT: motor sensory deficit Psychiatric exam: PRESENT: appropriate affect, normal mood. ABSENT: homicidal ideation, suicidal ideation Skin exam: PRESENT: dry, intact, warm. ABSENT: cyanosis, rash Results Laboratory Results: 04/06/17 05:12 04/06/17 05:12 WBC 14.2 H RBC 4.27 L Hgb 13.3 L D Hct 38.5 MCV 90 MCH 31.2 MCHC 34.5 RDW 13.1 Plt Count 185 Seg Neutrophils % 76.3 Lymphocytes % 13.7 Monocytes % 9.5 Eosinophils % 0.3 Basophils % 0.2 Absolute Neutrophils 10.8 H Absolute Lymphocytes 1.9 Absolute Monocytes 1.3 Absolute Eosinophils 0.0 Absolute Basophils 0.0 Impressions: Chest X-Ray 04/05/17 16:13 IMPRESSION: NO SIGNIFICANT RADIOGRAPHIC FINDING IN THE CHEST. Assessment & Plan - Diagnosis (1) Atypical pneumonia Is this a current diagnosis for this admission?: Yes Plan: Admitted to a monitored bed with pneumonia care set, supplemental oxygen, empiric antibiotics albuterol and Atrovent, incentive spirometry. Follow-up CBC and noncontrasted CT of the chest given family history of lung cancer at young age. (2) Tobacco abuse Is this a current diagnosis for this admission?: Yes Plan: Tobacco Dependence patient received tobacco cessation counseling and offered nicotine replacement options (3) Family history of lung cancer Is this a current diagnosis for this admission?: Yes Plan: Additional risk of tobacco dependence, atypical hesitation, noncontrasted CT of the chest ordered. (4) Sepsis Qualifiers: Sepsis type: sepsis due to unspecified organism Qualified Code(s): A41.9 - Sepsis, unspecified organism Is this a current diagnosis for this admission?: Yes Plan: IV fluid challenge, empiric antibiotics reevaluate by physically and biochemically. - Time Time Spent: 30 to 50 Minutes - Inpatient Certification Medical Necessity: Need Close Monitoring Due to Risk of Patient Decompensation
--- NOTE | 2017-04-06 09:09 | RADIOLOGY REPORT (SQ) ---
EXAM DESCRIPTION: CTA CHEST COMPLETED DATE/TIME: 04/06/2017 8:50 am REASON FOR STUDY: Hypoxia, dyspnea COMPARISON: Chest x-ray dated 04/05/2017 TECHNIQUE: CT scan of the chest performed using helical scanning technique with dynamic intravenous contrast injection. Images reviewed with lung, soft tissue and bone windows. Reconstructed coronal and sagittal MPR images reviewed. Additional 3 dimensional post-processing performed to develop Maximal Intensity Projection images (MN P). All images stored on PACS. All CT scanners at this facility use dose modulation, iterative reconstruction, and/or weight based d osing when appropriate to reduce radiation dose to as low as reasonably achievable (ALARA). [facility]: Dose Right [facility]: CareDose [facility]: Dose Right [facility]: Teradose 4D [facility]: [employer] CONTRAST TYPE AND DOSE: contrast/concentration: Isovue 370.00 mg/ml; Total Contrast Delivered: 71.0 ml; Total Saline Delivered: 96.6 ml Contrast bolus optimized for the pulmonary arteries. Not diagnostic for the aorta. RENAL FUNCTION: None required. The patient is less than 50 years old. RADIATION DOSE: Up-to-date CT equipment and radiation dose reduction techniques were employed. CTDIv ol: 14.6 - 16.5 mGy. DLP: 585 mGy-cm. . LIMITATIONS: None. FINDINGS: LUNGS AND PLEURA: There is some minimal airspace consolidation in the right lung base whic h could represent atelectatic changes or a basilar infiltrate. Remaining lung christiansen are clear. No pleural effusions are identified. AORTA AND GREAT VESSELS: No aneurysm. Contrast bolus not optimized for the aorta. HEART: No pericardial effusion. No significant coronary artery calcifications. PULMONARY ARTERIES: No emboli visualized in the main pulmonary arteries or the segmental branches. HILAR AND MEDIASTINAL STRUCTURES: No identified masses or abnormal nodes. HARDWARE: None in the chest. UPPER ABDOMEN: No significant findings. Limited exam. THYROID AND OTHER SOFT TISSUES: No masses. No adenopathy. BONES: No acute or significant finding. 3D MIPS: Confirm above findings. OTHER: No other significant finding. IMPRESSION: No evidence for pulmonary embolic disease. Minimal airspace consolidation in the right lung base which could represent atelectatic changes or basilar infiltrate. Remaining lung christiansen are clear. No pleural effusions are identified. Other findings as noted above COMMENT: Quality ID # [id number]: Final reports with documentation of one or more dose reduction techniques (e.g., Automated exposure control, adjustment of the mA and/or kV according to patient size, use of iterative reconstruction technique) TECHNICAL DOCUMENTATION: JOB ID: [id number] [employer]- All Rights Reserved
[2017-04-06] MEDS: FLUTICASONE NASAL SPRAY 50 MCG/SPRY 120 SPRAY/16 GM NASL SCH ×2 (09:22→22:09)
[2017-04-06] MEDS: GUAIFENESIN 600 MG TABLET.SA PO SCH ×2 (09:22→22:10)
--- NOTE | 2017-04-06 12:18 | PROGRESS NOTE E ---
Progress Note NAME: MARLO ZAYAS : 1995 AGE: 21Y DATE: 04/06/2017 ROOM: 424 CHIEF COMPLAINT: Shortness of breath. SUBJECTIVE: The patient is currently lying in bed. He states that he feels much better than when he came in. Overnight he denies any nausea, vomiting or diarrhea, no dizziness or chest pain. He states the shortness of breath is better. He is able to fully complete sentences. The patient has had a strong cough but has not been able to produce any sputum. The patient did have a low-grade temp but the patient is no longer tachypneic and the patient does not voice any other concerns at this time. REVIEW OF SYSTEMS: Rest of the review of systems is negative. MEDICATIONS: Medications have been reviewed. OBJECTIVE: GENERAL: The patient is a 21-year-old male who is awake and alert. He is oriented to person, place, time, and situation. He is verbal and conversational, ambulatory, and does not appear to be in any acute distress. VITAL SIGNS: Temperature 98.7, pulse 75, respirations 16, blood pressure 120/70, oxygen saturation is 97% on 2 L nasal cannula. SKIN: Warm and dry, no rash, not diaphoretic. HEENT: Pupils equal, round, reactive to light and accommodation. Conjunctivae are pink. There are no JVP. CARDIOVASCULAR: Heart is regular with no murmur or rub. CHEST: The patient does have rhonchorous breath sounds bilaterally with expiratory wheezes. ABDOMEN: Soft, nontender, nondistended. BACK: No CVA tenderness or sacral edema. EXTREMITIES: No clubbing, cyanosis or edema. PSYCHIATRIC: Appropriate affect. Pleasant mood. DIAGNOSTICS: Lab values are as follow: Hematology obtained on 04/06/2017: WBCs are 14.2, hemoglobin is 13.3, hematocrit is 38.5, platelet count is 185,000. Chemistry obtained on 04/06/2017: Sodium is 145, potassium 3.6, chloride is 109, carbon dioxide 26, BUN 7, creatinine is 0.95, glucose 98, lactic acid 1.5, calcium is 8.1. IMPRESSION AND PLAN: 1. RIGHT LUNG PNEUMONIA. Will continue the patient's current medications, as overall his symptoms are much improved. Will add flutter valve in an effort to help with excretions. Continue Mucinex and nebulizers and follow. 2. ACUTE HYPOXEMIC RESPIRATORY FAILURE. The patient desatted remarkably in the emergency department as well as was tachypneic. The patient was breathing about 40 times a minute and had sats in the 87 range. The patient overall is much improved and is comfortable on 2 L nasal cannula. CTA was unremarkable other than infiltrate. 3. SEPSIS SECONDARY TO #1. The patient was febrile with leukocytosis and respiratory failure. Overall the patient is much improved. He has been bolused and is comfortable at this time. DISPOSITION: The patient is a FULL CODE. Pending patient's symptomatology and diagnostic findings, will reevaluate in the a.m. Time spent on this followup including assessment, plan, physical examination, patient education, and family meeting and review of records is 35 minutes. DICTATING PHYSICIAN: VERNELL GREENE NP [id number] PHY#: [id number] ID: [id number] JOB#: [id number] ACCT: [id number] cc: >
[2017-04-06] MEDS ORDERED: MONTELUKAST SODIUM 10 MG TABLET PO ONE (13:00)
[2017-04-06] MEDS: METHYLPREDNISOLONE INJ 40 MG/1 ML SDV IV SCH ×2 (13:37→22:09)
[2017-04-06] MEDS ORDERED: LEVOFLOXACIN 750 MG/D5W RTU 750 MG/150 ML RTUPB IV SCH (18:00)
[2017-04-07] MEDS: IPRATROPIUM/ALBUTEROL 0.5-2.5 MG/3 ML AMPUL NEB SCH ×2 (01:51→07:49)
[2017-04-07 05:26] LABS: ABSOLUTE LYMPHOCYTES (AUTO) 0.8 10^3/uL (0.5-4.7); ABSOLUTE MONOCYTES (AUTO) 0.3 10^3/uL (0.1-1.4); ABSOLUTE NEUT (AUTO) 10.4 10^3/uL (1.7-8.2); BASOPHILS % (AUTO) 0.1 % (0-2); HEMATOCRIT 42.8 % (37.9-51.0); HEMOGLOBIN 14.7 g/dL (13.5-17.0); HGB HCT DIFFERENCE 1.3; LYMPHOCYTES % (AUTO) 7.3 % (13-45); MEAN CORPUSCULAR HGB CONC 34.3 g/dL (32.0-36.0); MEAN CORPUSCULAR VOLUME 90 fl (80-97); MONOCYTES % (AUTO) 2.9 % (3-13); RED BLOOD COUNT 4.74 10^6/uL (4.35-5.55); RED CELL DISTRIBUTION WIDTH 12.9 % (11.5-14.0); SEGMENTED NEUTROPHILS % (AUTO) 89.7 % (42-78); WHITE BLOOD COUNT 11.6 10^3/uL (4.0-10.5)
[2017-04-07 05:47] LABS: ANION GAP 13 (5-19); BLOOD UREA NITROGEN 9 mg/dL (7-20); CALCIUM 10.1 mg/dL (8.4-10.2); CARBON DIOXIDE 24 mmol/L (22-30); CHLORIDE 109 mmol/L (98-107); CREATININE RESULT 0.82 mg/dL (0.52-1.25); GLUCOSE 165 mg/dL (75-110); POTASSIUM 4.4 mmol/L (3.6-5.0); SODIUM 146.1 mmol/L (137-145)
[2017-04-07] MEDS: METHYLPREDNISOLONE INJ 40 MG/1 ML SDV IV SCH (06:00)
[2017-04-07] MEDS: HEPARIN SOD (PORCINE) 5,000 UNIT/ML 1 ML SYRINGE SUBCUT SCH (06:01)
[2017-04-07 10:01] VITALS: BP 131/66
--- NOTE | 2017-04-07 10:30 | DISCHARGE SUMMARY E ---
Discharge Summary NAME: MARLO HUNTER : 1995 AGE: 21Y ADMITTED: 04/05/2017 DISCHARGED: CODE STATUS: FULL CODE. PRIMARY CARE PROVIDER: The patient can be referred to the [facility]. DISCHARGE DIAGNOSES INCLUDES: 1. Community acquired right lower lobe pneumonia. 2. Acute hypoxemic respiratory failure which has resolved. 3. Sepsis secondary to #1 which has resolved. DISCHARGE MEDICATIONS INCLUDES: 1. Doxycycline 100 mg p.o. b.i.d., 16 tablets with 0 refills. 2. Mucinex 1200 mg p.o. b.i.d., 16 tablets with 0 refills. DIET: As tolerated. ACTIVITY: A note has been provided that the patient may return to work on 04/12/2017, without restriction. DIAGNOSTICS: Lab values are as follows: Hematology obtained on 04/07/2017: WBC is 11.6, hemoglobin is 14.7, hematocrit is 42.8, platelet count is 239,000. Venous blood gases obtained 04/05/2017: pH 7.40, pCO2 47.0, bicarb 28.8. Chemistry obtained on 04/07/2017: Sodium is 146, potassium 4.4, chloride is 109, carbon dioxide 24, BUN 9, creatinine is 0.82, glucose 165, lactic acid 1.5, calcium 10.1, bilirubin 1.2, AST 24, ALT 28, alk phos 86, total protein 7.8, albumin 4.8. Urinalysis obtained on 04/05/2017: Color yellow, appearance clear, pH is 7.0, specific gravity is 1.019, protein *------*, ketones negative, occult blood negative, nitrite negative, bilirubin negative, urobilinogen is 2.0, leukocyte esterase is trace, WBCs 12, RBCs 2, mucus rare, epithelial squamous cells 1, mucous rare, ascorbic acid is negative. Serologies obtained on 04/05/2017: Influenza A and B are negative. Microbiology obtained on 04/05/2017: Urine culture reveals no growth. Blood cultures obtained on 04/05/2017 reveals no growth. Chest CTA obtained on 04/06/2017 reveals no evidence of pulmonary embolic disease, minimal airspace consolidation in the right lung base, *------* atelectatic change or basilar infiltrate. Remaining lung christiansen are clear. No pleural effusions are identified. Chest x-ray obtained on 04/05/2017 reveals no significant radiographic finding of the chest. PHYSICAL EXAMINATION: GENERAL: On examination, the patient is a well-developed, well-nourished 21-year-old male who is awake, alert, and oriented to person, place, time, and situation. He is verbal, conversational, ambulatory, does not appear to be in any acute distress. VITAL SIGNS: As follows: Temperature is 98.5, pulse 71, respirations 14, blood pressure 126/68, oxygen saturation is 97% on room air. SKIN: Warm and dry. No rash, not diaphoretic. HEENT: Pupils equal, round, and reactive to light and accommodation. Conjunctivae pink. No JVP. CARDIOVASCULAR: Heart is regular. There is no murmur or rub. CHEST: Patient does have rhonchorous breath sounds noted throughout right lung field. Left lung field is clear, wheezes have completely resolved. ABDOMEN: Soft, nontender, nondistended. BACK: No CVA tenderness or sacral edema. EXTREMITIES: No clubbing, cyanosis or edema. PSYCHIATRIC: Appropriate affect. Pleasant mood. HISTORY OF PRESENT ILLNESS: Mr. Hunter is a 21-year-old male with a past medical history that is essentially unremarkable. The patient presented to the emergency department with a chief complaint of one week of fevers, nonproductive cough, and shortness of breath. The patient also admitted to some intermittent rhinorrhea as well. He denies any ill contacts. The patient's influenza was negative. The patient was noted to be in significant respiratory distress and required supplemental O2. The patient does have a history of tobacco dependency and a family history of lung cancer. Given these findings, the patient was referred to the hospitalist for admission and management. HOSPITAL COURSE: The patient was admitted to continuous telemetry. The patient was found to be febrile with leukocytosis and was noted to be tachycardic therefore the patient underwent CTA which was negative for pulmonary embolism however did note a right basilar infiltrate. The patient had been started on Levaquin since admission and had done very well with this. The patient was transitioned to room air very quickly. The patient did have a strong cough but was not producing any sputum. The patient was able to pull 250 on incentive spirometry. The patient denies any history of wheezing. He is able to complete sentences, no shortness of breath. The patient is no longer distressed, not tachypneic, nor hypoxic and the patient is quite eager for discharge. I spent 3 minutes discussing smoking cessation education. The patient declines any pharmacological intervention at this time and stating that he will wean himself off of tobacco given his family history. I provided a note for the patient to be excused from work for the rest of the week and the patient will follow with [facility] if his symptoms do not completely resolve. Will discharge him on doxycycline given that the patient is uninsured and a prescription has been E-prescribed. DISCHARGE PLAN: The patient will follow up with the [facility] as needed. Time spent on this discharge, including assessment/plan, physical examination, patient education, review of previous and current medical records is 25 minutes. DICTATING PHYSICIAN: VERNELL GREENE NP [id number] PHY#: [id number] ID: [id number] JOB#: [id number] ACCT: [id number] cc:GARRETT WATT M.D. VERNELL GREENE NP >
[2017-04-07] MEDS ORDERED: MONTELUKAST SODIUM 10 MG TABLET PO SCH (22:00)
== END 2017-04-07 10:16 | disposition home or self-care (01) | DRG 871 ==
LOC: ER 15:45 → EH 19:53 → 4S 21:25
PROVIDERS: ADMIT Internal Medicine; ATTEND Internal Medicine
PROC: 3E0F73Z Introduction of Anti-inflammatory into Respiratory Tract, Via Natural or Artificial Opening (ICD-10-PCS; principal; 2017-04-05)
DX: A41.9 Sepsis, unspecified organism (principal); J18.9 Pneumonia, unspecified organism; J96.01 Acute respiratory failure with hypoxia; F17.210 Nicotine dependence, cigarettes, uncomplicated; Z80.1 Family history of malignant neoplasm of trachea, bronchus and lung; Z59.7 Insufficient social insurance and welfare support; Z88.2 Allergy status to sulfonamides
CPT/HCPCS: 36415; 71020; 71275; 80048; 80053; 81001; 82803; 83605; 85025; 87040; 87086; 87804; 94640; 94667; 94668; 94799; 96361; 96365; 96375; 99285; J1644; J1956; J2543; J2920; J3490; J7030; J7620

== ENCOUNTER 2017-04-23 09:29 | Emergency (ER) | payer SELFPAY ==
[2017-04-23] MEDS ORDERED: LIDOCAINE 1% INJ-PF (10 MG/ML) 30 ML SDV ONE (10:20)
[2017-04-23] MEDS ORDERED: CEPHALEXIN 500 MG CAPSULE PO ONE (10:38)
[2017-04-23] MEDS ORDERED: HYDROCODONE/ACETAMINOPHEN 5-325 MG 6 TAB/DSPK PO PRN (10:38)
[2017-04-23] MEDS ORDERED: LIDOCAINE 1% INJ-PF (10 MG/ML) 30 ML SDV INJ ONE (10:38)
[2017-04-23] MEDS ORDERED: DIPH/PERTUSS(ACELL)/TETANUS VAC/PF 0.5 ML SYR (>=10YO) IM ONE (10:38)
--- NOTE | 2017-04-23 10:57 | ER Document Report ---
ED Hand/Wrist Injury - General Chief Complaint: Finger Injury Stated Complaint: RIGHT FINGER LACERATION Time Seen by Provider: 04/23/17 10:12 Mode of Arrival: Ambulatory Notes: 21-year-old male presented to ED for lacerations and avulsions to his fourth and fifth finger on his right hand. He states he was missing with a messenger last night and it broke and cut his fingers. He states he did not come to the ER and then his mother and decided that he should come so he came today with an 18 hours after cutting his fingers. He smokes a pack and a half a day drinks weekly. TRAVEL OUTSIDE OF THE [place] IN LAST 30 DAYS: No - HPI Injury to: Ring finger - Right, Small finger Onset: Yesterday Where: Home, Indoors Timing: Still present Quality of pain: Sharp Severity: Moderate Pain Level: 4 Context: Laceration - Related Data Allergies/Adverse Reactions: Sulfa (Sulfonamide Antibiotics) Allergy (Verified 04/23/17 09:37) Past Medical History - General Information source: Patient - Social History Smoking Status: Current Every Day Smoker Cigarette use (# per day): Yes - One half packs per day Chew tobacco use (# tins/day): No Smoking Education Provided: Yes - Less than 2 minutes Frequency of alcohol use: Social Drug Abuse: None Occupation: Table Lives with: Spouse/Significant other Family History: Malignancy - Mother with lung cancer in 30s. denies: Arthritis , CAD, COPD, CVA, DM, Hyperlipidemia, Hypertension, Thyroid Disfunction Patient has suicidal ideation: No Patient has homicidal ideation: No - Past Medical History Cardiac Medical History: Reports: None Pulmonary Medical History: Reports: Hx Pneumonia EENT Medical History: Reports: None Neurological Medical History: Reports: None Endocrine Medical History: Reports: None Renal/ Medical History: Reports: None Malignancy Medical History: Reports None GI Medical History: Reports: None Musculoskeltal Medical History: Reports Hx Musculoskeletal Trauma Skin Medical History: Reports None Psychiatric Medical History: Reports: None Traumatic Medical History: Reports: Hx Fractures - Hand Infectious Medical History: Reports: None Past Surgical History: Reports: Hx Oral Surgery - [place] teeth, Other - Ingrown toenail - Immunizations Hx Diphtheria, Pertussis, Tetanus Vaccination: Yes Review of Systems - Review of Systems Constitutional: No symptoms reported EENT: No symptoms reported Cardiovascular: No symptoms reported Respiratory: No symptoms reported Gastrointestinal: No symptoms reported Genitourinary: No symptoms reported Male Genitourinary: No symptoms reported Musculoskeletal: No symptoms reported Skin: Other - Sessions in order to the fourth and fifth finger on the right hand Hematologic/Lymphatic: No symptoms reported Neurological/Psychological: No symptoms reported Physical Exam - Vital signs Vitals: Temp Pulse Resp BP Pulse Ox 98.2 F 78 16 130/86 H 97 04/23/17 09:37 04/23/17 09:37 04/23/17 09:37 04/23/17 09:37 04/23/17 09:37 Interpretation: Normal - General General appearance: Appears well, Alert - HEENT Head: Normocephalic, Atraumatic Eyes: Normal Pupils: PERRL - Respiratory Respiratory status: No respiratory distress Chest status: Nontender Breath sounds: Normal Chest palpation: Normal - Cardiovascular Rhythm: Regular Heart sounds: Normal auscultation Murmur: No - Abdominal Inspection: Normal Distension: No distension Bowel sounds: Normal Tenderness: Nontender Organomegaly: No organomegaly - Back Back: Normal, Nontender - Extremities General upper extremity: Normal inspection, Nontender, Normal color, Normal ROM , Normal temperature General lower extremity: Normal inspection, Nontender, Normal color, Normal ROM , Normal temperature, Normal weight bearing. No: Augie's sign - Neurological Neuro grossly intact: Yes Cognition: Normal Orientation: AAOx4 [place] Coma Scale Eye Opening: Spontaneous [place] Coma Scale Verbal: Oriented [place] Coma Scale Motor: Obeys Commands [place] Coma Scale Total: 15 Speech: Normal Motor strength normal: LUE, RUE, LLE, RLE Sensory: Normal - Psychological Associated symptoms: Normal affect, Normal mood - Skin Skin Temperature: Warm Skin Moisture: Dry Skin Color: Normal Skin irregularity: Laceration, other - Avulsion injuries to fourth and fifth fingers right Course - Re-evaluation Re-evalutation: 04/23/17 10:51 Right fourth and fifth finger soaked in Betadine finger block to the fourth and fifth finger completed PCT is now scrub and the 2 fingers patient will get a tetanus shot and Keflex and a Maramec dispense back. Will discharge patient as soon as these are completed. - Vital Signs Vital signs: Temp Pulse Resp BP Pulse Ox 98.4 F 87 20 125/74 99 04/23/17 11:38 04/23/17 11:38 04/23/17 11:38 04/23/17 11:38 04/23/17 11:38 Discharge - Discharge Clinical Impression: Avulsion injury fourth right finger, Avulsion injury fifth right finger, Laceration fourth right finger nail injury Condition: Stable Disposition: HOME, SELF-CARE Additional Instructions: NON-SUTURED LACERATION: Your laceration did not require suturing. Some lacerations cannot be sutured because of increased infection risk, while others simply don't need stitches because they are shallow or very short. Your injury should be protected while it heals. Usually complete healing takes 10 to 14 days. Keep the dressing clean and dry, and change it every day. If you notice increasing pain, redness, swelling, drainage, or tender lumps in the armpit or groin above the injury, infection may be present. You should call the doctor at once. Avulsion Injury You have an avulsion injury -- a loss of skin which can't be helped by suturing. When large, these injuries can require skin grafting. Smaller defects or shallow avulsions usually heal well with dressings. Keep the dressing clean and dry. If the bandage becomes wet, remove it, blot the area dry, and apply a fresh dressing. Change the dressings every day. Complete healing may take anywhere from 10 days to two months. The healing time depends on the size and depth of the avulsion and on the amount of crushing of underlying tissues. Re-examination by the physician is often necessary. If any signs of infection occur (swelling, redness, increasing tenderness, red streaks, profuse purulent drainage from the avulsion, tender lumps in the armpit or groin above the avulsion, or fever), see your doctor immediately. SOAP CLEANSING: Gently wash the wound daily using a mild soap (like Ivory, Phisoderm, Neutrogena). Use warm water, rubbing gently until all debris, ooze, and crusting have been washed from the wound. Allow to dry briefly (about 10 minutes) after cleaning. Repeat this cleansing at least three times a day for the first two days and then once or twice a day. ANTIBIOTIC OINTMENT PROTECTION: Your wounds are such that dressing them is not practical or optional. After cleansing, you should apply a thin coating of antibiotic ointment ( Bacitracin, not Neosporin) to the wounds at least three times daily. This lessens infection risk, and may decrease the amount of scarring. Use a q-tip or dull butter knife, not your finger, to apply this ointment. Any debris or ooze which builds up in the ointment should be gently rubbed off with a sterile gauze pad. Harder crusting may need to be gently scrubbed off with a clean wash cloth with soap and warm water, perhaps applying a warm, wet wash cloth to the wound for ten minutes first. Development of redness, severe itching, or blistering may mean allergy to the ointment. See the doctor. TETANUS IMMUNIZATION GIVEN: You have been given an immunization against tetanus. Please record this in your records. In general, a booster is needed only once every 10 years. The tetanus shot protects against tetanus or "lockjaw," which is a complication of certain wound infections (the tetanus shot cannot protect against the actual infection). The immunization site may become warm and red due to local reaction. If this occurs, apply warm compresses and take aspirin or ibuprofen to reduce inflammation and discomfort. Return for evaluation if the reaction becomes severe. PROPHYLACTIC ANTIBIOTIC: The antibiotics which have been prescribed are designed to decrease the risk of infection. Only certain types of wounds benefit from this -- the typical cut, scrape, or burn DOES NOT require antibiotics. Of course, infection can still occur despite the use of prophylactic antibiotics. Your wound will heal with less chance of an infectious complication if you take the medication as directed. The most important dose is the FIRST dose, so don't delay filling the prescription! ORAL NARCOTIC MEDICATION: You have been given a prescription for pain control. This medication is a narcotic. It's best taken with food, as nausea can result if taken on an empty stomach. Don't operate machinery or drive within six hours of taking this medication. Do not combine this medicine with alcohol, or with any medication which can cause sedation (such as cold tablets or sleeping pills) unless you get permission from the physician. Narcotics tend to cause constipation. If possible, drink plenty of fluids and eat a diet high in fiber and fruits. FOLLOW-UP CARE: Please return in __5___ days for an infection check and dressing change. If you have been referred to another physician for follow-up care, call that physicians office for an appointment as you were instructed. If you experience a significant change in your laceration, or if you are concerned there may be an infection (swelling, redness, drainage, increasing tenderness, red streaks, tender lumps in the armpit or groin above the laceration, or fever) , return to the Emergency Department immediately re-evaluation. Prescriptions: Cephalexin Monohydrate [Keflex 500 mg Capsule] 500 mg PO Q6H 5 Days capsule Referrals: THERON JONES [Primary Care Provider] - Follow up as needed KAR AMADO DO [ACTIVE STAFF] - Follow up as needed
[2017-04-23 11:41] VITALS: BP 125/74
== END 2017-04-23 11:38 | disposition home or self-care (01) ==
LOC: ER 09:29
DX: S61.214A Laceration without foreign body of right ring finger without damage to nail, initial encounter (principal); S61.216A Laceration without foreign body of right little finger without damage to nail, initial encounter; W45.8XXA Other foreign body or object entering through skin, initial encounter; Y92.009 Unspecified place in unspecified non-institutional (private) residence as the place of occurrence of the external cause; F17.210 Nicotine dependence, cigarettes, uncomplicated; Z88.2 Allergy status to sulfonamides; Z23 Encounter for immunization
CPT/HCPCS: 90715; 99283

== ENCOUNTER 2017-12-06 06:07 | Emergency (ER) | payer SELFPAY ==
[2017-12-06 06:50] VITALS: BP 130/85
--- NOTE | 2017-12-06 07:31 | ER Document Report ---
HPI - HPI Pain Level: 2 Notes: Patient is a 22-year-old male who presents to the ED complaining of right hand pain status post injury about 3-1/2 hours ago. Patient states that he punched a door. Patient states that the pain is primarily to the hand and does not radiate. He is still able to move his hand otherwise without any difficulties aside from pain. Patient states that his tetanus is up-to-date. He has no other concerns or complaints at this time. He has not had any medicines for his symptoms and states that Tylenol/Motrin did not work for him. Denies any headache, fever, URI, sore throat, chest pain, palpitations, syncope, cough, shortness of breath, wheeze, dyspnea, abdominal pain, nausea/vomiting/diarrhea, urinary retention, dysuria, hematuria, numbness/tingling, muscle paralysis/ weakness, or rash. - ROS Systems Reviewed and Negative: Yes All other systems reviewed and negative - CONSTITUTIONAL Constitutional: DENIES: Fever, Chills Past Medical History - Social History Smoking Status: Unknown if Ever Smoked Family History: Malignancy - Mother with lung cancer in 30s. denies: Arthritis , CAD, COPD, CVA, DM, Hyperlipidemia, Hypertension, Thyroid Disfunction Patient has suicidal ideation: No Patient has homicidal ideation: No Pulmonary Medical History: Reports: Hx Pneumonia Renal/ Medical History: Denies: Hx Peritoneal Dialysis Musculoskeletal Medical History: Reports Hx Musculoskeletal Trauma Traumatic Medical History: Reports: Hx Fractures - Hand Past Surgical History: Reports: Hx Oral Surgery - [place] teeth, Hx Orthopedic Surgery, Other - Ingrown toenail - Immunizations Hx Diphtheria, Pertussis, Tetanus Vaccination: Yes Vertical Provider Document - CONSTITUTIONAL Agree With Documented VS: Yes Notes: PHYSICAL EXAMINATION: GENERAL: Well-appearing, well-nourished and in no acute distress. LUNGS: Breath sounds clear to auscultation bilaterally and equal. No wheezes rales or rhonchi. HEART: Regular rate and rhythm without murmurs, rubs, gallops. Musculoskeletal: Rt hand: + abrasion to the posterior lateral hand, no laceration. + mild swelling noted to the posterior medial hand near MCP 4-5. FROM to passive/active. Strength 5+/5. N/V intact distal. + tenderness to the 4th-5th MCP joints/metacarpals to palpation. No scaphoid tenderness. Extremities: No cyanosis, clubbing, or edema b/l. Peripheral pulses 2+. Capillary refill less than 3 seconds. NEUROLOGICAL: Normal speech, normal gait. Normal sensory, motor exams PSYCH: Normal mood, normal affect. SKIN: see above. Warm, Dry, normal turgor, no rashes or lesions noted. - INFECTION CONTROL TRAVEL OUTSIDE OF THE [place] IN LAST 30 DAYS: No Course - Re-evaluation Re-evalutation: 12/06/17 07:31 Pt declined any tylenol/motrin. 12/06/17 08:06 Patient is an afebrile, well-hydrated, 22-year-old male who presents to the ED with right hand pain, suspect contusion. Vitals are acceptable without any significant tachycardia, tachypnea, or hypoxia. PE is otherwise unremarkable for any neurovascular compromise, obvious tendon/ligament rupture, obvious fracture/dislocation, septic joint. X-ray was unremarkable for any acute pathology. Patient declined any Tylenol/ibuprofen or ice. Patient is nontoxic- appearing. No other labs or imaging warranted at this time based on H&P. I will send him home with a prescription for naproxen. Conservative measures otherwise for symptoms. Recheck with your PCM in 3-5 days. Consider consult orthopedics. Return to the ED with any worsening/concerning symptoms otherwise as reviewed in discharge. Patient is in agreement. - Vital Signs Vital signs: Temp Pulse Resp BP Pulse Ox 98.5 F 87 16 130/85 H 100 12/06/17 06:46 12/06/17 06:46 12/06/17 06:46 12/06/17 06:46 12/06/17 06:46 Discharge - Discharge Clinical Impression: Right hand pain Condition: Stable Disposition: HOME, SELF-CARE Additional Instructions: Rest, Ice, Compression, Elevation Tylenol/ibuprofen as needed Light stretches daily Strength exercises as able Moist heat and massage may help F/u with your PCP in 3-5 days for a recheck Consider consult(s) with Orthopedics/physical therapy for ongoing/worsening symptoms Return to the ED with any worsening symptoms and/or development of fever, headache, chest pain, palpitations, syncope, shortness of breath, trouble breathing, abdominal pain, n/v/d, muscle weakness/paralysis, numbness/tingling, swelling, redness, or other worsening symptoms that are concerning to you. Prescriptions: Naproxen 500 mg PO BID PRN #30 tablet PRN Reason: Forms: Elevated Blood Pressure Referrals: [facility] [Provider Group] - Follow up as needed
--- NOTE | 2017-12-06 07:58 | RADIOLOGY REPORT (SQ) ---
EXAM DESCRIPTION: HAND RIGHT 3 VIEWS COMPLETED DATE/TIME: 12/06/2017 7:29 am REASON FOR STUDY: pain and swelling COMPARISON: Right hand 11/07/2016 EXAM PARAMETERS: NUMBER OF VIEWS: Three views. TECHNIQUE: AP, lateral and oblique radiographic images acquired of the right hand. LIMITATIONS: None. FINDINGS: MINERALIZATION: Normal. BONES: Multiple old healed fractures are present as follows: Dorsal base right 5th finger distal phalanx Proximal base 5th metacarpal at the carpometacarpal joint Mid diaphysis 4th metacarpal with bony remodeling No acute fracture. No aggressive bony demineralization worrisome for osteomyelitis/infection JOINTS: Advanced osteoarthritis 5th carpometacarpal joint SOFT TISSUES: No soft tissue swelling. No foreign body. OTHER: No other significant finding. IMPRESSION: Old healed right 5th finger distal phalanx, 4th and 5th metacarpal fractures. Osteoarthritis 5th carpometacarpal joint. No acute findings TECHNICAL DOCUMENTATION: JOB ID: [id number] [facility]- All Rights Reserved Reading location - IP/workstation name: [email or web address]
== END 2017-12-06 08:43 | disposition home or self-care (01) ==
LOC: ER 06:07
DX: S60.511A Abrasion of right hand, initial encounter (principal); M79.641 Pain in right hand; W22.8XXA Striking against or struck by other objects, initial encounter; Z87.81 Personal history of (healed) traumatic fracture
CPT/HCPCS: 99283